=== PATIENT | female | born 1995 | race Caucasian/White ===

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

== ENCOUNTER 2017-03-08 14:01 | Emergency (ER) | payer MEDICAID ==
[~2017-03-08] VITALS: Ht 157.5 cm; Wt 68.0 kg
[~2017-03-08 14:01] MED LIST changes: -CALC667C PO; +IBUP-1542 PO; +[UNRECOGNIZED DRUG - CODE] TP
[2017-03-08 14:06] VITALS: Ht 157.5 cm; Wt 68.0 kg
--- NOTE | 2017-03-08 17:19 | ERA ---
ER Documentation Chief Complaint Date/Time DATE: 03/08/17 TIME: 17:17 Chief Complaint right breast bleeding, pt is breatsfeeding HPI 21-year-old female with right breast bleeding. Pain started today after not pumping or breast-feeding. Describes no changes around the nipple. The airplane refueler was Yvonne SCHWARTZ. Symptoms have lasted 1-2 days. Patient has no other complaints and describes no other associated manifestations. Nursing notes have been reviewed and are consistent with history given. ROS All systems reviewed and are negative except as per history of present illness. Medications Home Meds Active Scripts Cephalexin* (Keflex*) 500 Mg Capsule, 500 MG PO QID for 5 Days, CAP Prov:ONELIA DOWNS PA-C 03/08/17 Witch Era (Witch Era) 473 Ml Solution, 473 ML TP TID, #1 EA Prov:MARIAN TRAVIS MD 12/22/16 Ibuprofen* (Ibuprofen*) 600 Mg Tablet, 600 MG PO Q6 for 10 Days, #1 TAB Prov:MARIAN TRAVIS MD 12/22/16 Reported Medications Ferrous Sulfate (Iron) 134 Mg Tablet, 134 MG PO, TAB 11/23/16 Multivit/Min/Fol Ac/Iron/Pren* ( S*) 1 Tab Tab, 1 TAB PO DAILY, TAB 11/23/16 Allergies Allergies: Coded Allergies: No Known Allergy (Unverified , 12/16/16) PMhx/Soc Medical and Surgical Hx: pt denies Medical Hx, pt denies Surgical Hx History of Surgery: No Anesthesia Reaction: No Hx Neurological Disorder: No Hx Respiratory Disorders: No Hx Cardiac Disorders: No Hx Psychiatric Problems: No Hx Miscellaneous Medical Probl: No Hx Alcohol Use: No Hx Substance Use: No Hx Tobacco Use: No Smoking Status: Never smoker Physical Exam Vitals Physical Exam Const: Well-appearing well-developed 21-year-old female in no acute distress Head: Atraumatic Eyes: Normal Conjunctiva ENT: Normal External Ears, Nose and Mouth. Neck: Full range of motion..~ No meningismus. Resp: Clear to auscultation bilaterally Cardio: Regular rate and rhythm, no murmurs Abd: Soft, non tender, non distended. Normal bowel sounds Skin: No petechiae or rashes Back: No midline or flank tenderness Ext: No cyanosis, or edema Neur: Awake and alert Psych: Normal Mood and Affect Woman exam: Breasts unremarkable. Mild tenderness to palpation. No obvious abnormalities with visualization of the breast/nipple. Procedures/MDM 21-year-old female with a chief complaint of putting up with discharge as described in history and physical examination. Ultrasound was obtained, read by the radiologist, given the impression of dilated retroareolar ducts but otherwise benign. At this time a little suspicion for abscess, systemic involvement, or serious bacterial infection. Most likely diagnosis is mastitis versus bleeding of unknown etiology. I presented the case my attending Dr. Castaneda who agrees with the assessment and plan. Patient will be given Keflex outpatient 5 days and advised to follow-up closely with [facility]/PCP. I have spoke with the patient regarding their condition and future management. They have verbally responded that they understand their status and treatment plan. The patients vitals are stable, and their current condition is appropriate for discharge. The patient will be given discharge instructions with return precautions. Departure Diagnosis: Primary Impression: Breast discharge Additional Impression: Mastitis Condition: Stable Additional Instructions: Yuly un seguimiento con araiza PCP dentro de los prximos 1-3 macias para tami evaluaci n ms completa y tami posible derivacin a un especialista. Devuelva el departamento de emergencia inmediatamente si los sntomas empeoran o cambian. Si tiene alguna pregunta con respecto a los medicamentos, consulte con araiza farmac utico o con nosotros antes de salir. Si se producen reacciones adversas mientras ayaka carlee medicamentos, suspenda el tratamiento y regrese inmediatamente al servicio de urgencias. [place] medicamentos segn las indicaciones y complete el curso completo del tratamiento. Comments DOS - 03/08/17 ONELIA DOWNS PA-C Mar 08, 2017 17:19 inmediatamente al servicio de urgencias. [place] car[place] medicamentos segn las indicaciones y complete el curso completo del tratamiento. ONELIA DOWNS PA-C Mar 08, 2017 17:19
--- NOTE | 2017-03-08 19:22 | RADRPT ---
PROCEDURE: Ultrasound right breast CLINICAL INDICATION: Right breast pain and bleeding while breast-feeding TECHNIQUE: Ultrasound right breast and axillary tail was performed. COMPARISON: None available FINDINGS: Dilated ducts are seen in the retroareolar region. No discrete cyst is seen. No solid mass is seen o n ultrasound. IMPRESSION: Dilated ducts in retroareolar region. Otherwise unremarkable examination. Recommendation: Clinical management is recommended BIRADS 2 - benign RPTAT: HJES .Camron Osborne MD, MD Date Time Electronically viewed and signed by .Camron Osborne MD, on 03/08/2017 19:22 .S/
[2017-03-08] MEDS ORDERED: CEPH-443 PO (19:31)
[2017-03-08 20:12] VITALS: BP 121/70; PULSE 59; RESP 16; TEMP 97.5
== END 2017-03-08 20:12 | disposition home or self-care (01) ==
LOC: FTE 14:01
DX: N61.0 Mastitis without abscess (principal)
CPT/HCPCS: 76642; Z7502